=== PATIENT | female | born 1945 | race Caucasian/White ===

== ENCOUNTER 2017-02-22 15:22 | Outpatient (CLI) | payer OTHER ==
[~2017-02-22 15:22] MED LIST: CLINDAGEL; HYCET1 ML PO; SOTALOL HCL80 MG PO; TRIAMCINOLONE0.025 %
--- NOTE | 2017-02-22 16:01 | DIAGNOSTIC IMAGING REPORT ---
PROCEDURE: XR CHEST 2 VIEW INDICATION: ACUTE BRONCHITIS TECHNIQUE: PA and lateral views. COMPARISON: None. FINDINGS: Lungs are clear. Heart and mediastinum are normal. Thorax is normal. IMPRESSION: 1. Negative chest.
== END 2017-02-22 23:00 ==
LOC: XR SRH 15:22
DX: J20.9 Acute bronchitis, unspecified (principal)